=== PATIENT | female | born 1985 | race Caucasian/White ===

== ENCOUNTER → 2024-02-26 15:08 | Outpatient (CLI) | payer BC, SELFPAY ==
--- NOTE | 2024-02-26 15:09 | DI.RAD.S_ITS ---
PROCEDURE: XR THORACIC SPINE 3V INDICATIONS: back pain lower cervical pain TECHNIQUE: 3 views of the thoracic spine were acquired. COMPARISON: None. FINDINGS: Bones: No fractures or dislocations. No suspicious bony lesions. 12 pairs of ribs are noted, and appear intact where visualized. Soft tissues: No paravertebral stripe thickening. IMPRESSION: No acute bony abnormality. Approved by: Riley Etienne M.D. on 02/27/2024 at 19:09
== END ==
PROVIDERS: PCP Family Medicine; Referring Provider Family Medicine; Visit Provider Family Medicine
DX: M54.9 Dorsalgia, unspecified (principal)
CPT/HCPCS: 72072

== ENCOUNTER → 2024-03-12 09:43 | Outpatient (CLI) | payer BC, SELFPAY | PROVIDERS: PCP Family Medicine; Visit Provider Nurse Practitioner Family | DX: J02.9 Acute pharyngitis, unspecified (principal) | CPT/HCPCS: 87070 ==

== ENCOUNTER → 2024-05-13 15:20 | Outpatient (CLI) | payer BC, SELFPAY ==
--- NOTE | 2024-05-13 15:20 | DI.US.S_ITS ---
PROCEDURE: US PELVIC COMPLETE INDICATIONS: Menorrhagia, fam hx early men, pelvic pain TECHNIQUE: Real-time scanning was performed of the pelvic organs, with image documentation. Additional endovaginal scanning was necessary due to incomplete visualization of the adnexal and endometrial structures by transabdominal scanning. COMPARISON: None. FINDINGS: Uterus: Uterus is anteverted and normal in size at 8.4 x 3.8 x 4.6 cm. The myometrium is homogeneous. The endometrium measures 4.3 mm combined thickness. Ovaries: The right ovary measures 3.0 x 1.2 x 2.0 cm, with a calculated ovarian volume of 3.7 cc. Complex right ovarian cyst measuring 1.3 x 0.8 x 1.1 cm. The left ovary measures 2.1 x 2.8 x 1.8 cm, with a calculated ovarian volume of 5.3 cc. Simple left ovarian cyst measuring 1.1 cm. The ovaries have a normal sonographic appearance. Less than 12 follicles can be seen in each ovary. No adnexal masses are seen. Other: No pathologic free abdominal or pelvic fluid. Dilated left adnexal vessels measure up to 9 mm. IMPRESSION: Normal appearance of the uterus and endometrium. Complex right ovarian cyst measuring 1.3 cm. Recommend 6-12 week follow-up ultrasound. Dilated left adnexal vessels measure up to 9 mm, nonspecific, recommend clinical correlation for pelvic congestion syndrome. We strive to produce accurate, complete, and clear reports of imaging services. To assist us in improving patient care, this report was composed using standard report templates and voice recognition software. Therefore, it may contain abnormal punctuation, insertions and/or omissions. Occasional wrong-word or sound-alike substitutions may occur. Though we review the report and make efforts to correct it, we do recommend that the report be read carefully in proper context to recognize any text inaccuracies. Dictated by: Elliot Villagomez M.D. on 05/14/2024 at 15:18 Approved by: Elliot Villagomez M.D. on 05/14/2024 at 15:21
== END ==
LOC: US 15:20
PROVIDERS: PCP Family Medicine; Referring Provider Family Medicine; Visit Provider Family Medicine
DX: N92.0 Excessive and frequent menstruation with regular cycle (principal); N83.292 Other ovarian cyst, left side; N83.291 Other ovarian cyst, right side; R10.2 Pelvic and perineal pain; Z83.49 Family history of other endocrine, nutritional and metabolic diseases
CPT/HCPCS: 76830; 76856; 93976

== ENCOUNTER → 2024-05-16 14:30 | Outpatient (CLI) | payer BC, SELFPAY ==
--- NOTE | 2024-05-16 14:30 | DI.MG.S_ITS ---
BILATERAL DIGITAL SCREENING MAMMOGRAM 3D/2D WITH CAD WITH AUGMENTATION: 05/16/2024 Comparison is made to exam dated: 05/31/2017 mammogram - Outside facility. Both breasts are heterogeneously dense, which may obscure small masses (category c / 51-75% glandular tissue). Current study was also evaluated with a Computer Aided Detection (CAD) system. Bilateral breast implants are present. No significant masses, calcifications, or other findings are seen in either breast. There has been no significant interval change. IMPRESSION: NEGATIVE There is no mammographic evidence of malignancy. A 1 year screening mammogram is recommended. Based on the Tyrer Cuzick model (a risk assessment model) the patient's lifetime risk is 15.0% and her 10 year risk is 1.9%. According to the ACR, ACS, and NCCN guidelines, an annual breast MRI exam along with mammogram is recommended if the patient's lifetime risk is 20% or greater. This exam was interpreted at Station ID: [id number]. NOTE: For mammograms, a report in lay terms will be sent to the patient. Approximately 15% of breast malignancies will not be visualized mammographically. In the management of a palpable breast mass, a negative mammogram must not discourage biopsy of a clinically suspicious lesion. Electronically Signed By: Haroon morales/[email or web address]:05/16/2024 15:05:23 letter sent: Normal Exam ACR BI-RADS Category 1: Negative 3341F
== END ==
PROVIDERS: PCP Family Medicine; Referring Provider Family Medicine; Visit Provider Family Medicine
DX: Z12.31 Encounter for screening mammogram for malignant neoplasm of breast (principal); Z98.82 Breast implant status; R92.333 Mammographic heterogeneous density, bilateral breasts
CPT/HCPCS: 77063; 77067

== ENCOUNTER → 2024-05-20 07:05 | Outpatient (CLI) | payer BC, SELFPAY ==
[2024-05-20 08:02] LABS: Add Manual Diff / Slide Review NO; Basophils Absolute Auto 0 /uL (0-100); Basophils Percent Auto 0.5 % (0-2); Eosinophils Absolute Auto 100 /uL (0-450); Eosinophils Percent Auto 1.7 % (2-4); Hematocrit 38.9 % (36-46); Hemoglobin 13.2 g/dL (12.0-16.0); Lymphocytes Absolute Auto 1300 /uL (1100-4500); Lymphocytes Percent Auto 33.5 % (25-40); Mean Corpuscular HGB Conc 33.9 % (30-36); Mean Corpuscular Hemoglobin 31.8 PG (26-34); Mean Corpuscular Volume 93.8 fL (80-100); Monocytes Absolute Auto 300 /uL (0-900); Monocytes Percent Auto 6.7 % (3-14); Neutrophils Absolute Auto 2300 /uL (1500-7000); Neutrophils Percent Auto 57.6 % (50-75); Platelet Count 246 X10^3/uL (150-400); Red Blood Cell Count 4.15 X10^6/uL (4.0-5.2); Red Cell Distribution Width 12.9 % (11.6-14.8)
[2024-05-20 08:32] LABS: Alanine Aminotransferase 17 IU/L (<35); Albumin 4.4 g/dL (3.5-5.0); Albumin Globulin Ratio 1.5 (1.0-2.8); Alkaline Phosphatase 52 U/L (38-126); Aspartate Aminotransferase 23 IU/L (14-36); BUN Creatinine Ratio 15.3 (6-22); Bilirubin Total 0.6 mg/dL (0.2-1.3); Blood Urea Nitrogen 15 mg/dL (7-17); Calcium 9.4 mg/dL (8.4-10.2); Carbon Dioxide 25 mmol/L (22-32); Chloride 108 mmol/L (98-107); Cholesterol 190 mg/dL (140-199); Estimated Glomerular Filt Rate > 60 mL/min (>60); Globulin 2.9 g/dL (1.7-4.1); Glucose 94 mg/dL (70-100); HDL Cholesterol 69 mg/dL (40-60); HEMOLYSIS < 15 (0-50); LDL Cholesterol Calculated 106 mg/dL (<100); Potassium 5.2 mmol/L (3.4-5.1); Sodium 138 mmol/L (137-145); Total Protein 7.3 g/dL (6.3-8.2); Triglycerides 74 mg/dL (35-150)
== END ==
PROVIDERS: PCP Family Medicine; Referring Provider Family Medicine; Visit Provider Family Medicine
DX: N92.4 Excessive bleeding in the premenopausal period (principal); Z13.220 Encounter for screening for lipoid disorders
CPT/HCPCS: 36415; 80053; 80061; 85025

== ENCOUNTER → 2025-01-20 15:33 | Outpatient (CLI) | payer BC, SELFPAY ==
--- NOTE | 2025-01-20 15:35 | DI.RAD.S_ITS ---
PROCEDURE: XR CHEST 2V INDICATIONS: pain with breathing on right side near upper breast TECHNIQUE: 2 views of the chest were acquired. COMPARISON: None. FINDINGS: Surgical changes and devices: None. Lungs and pleura: Lungs are clear. No pleural effusions or pneumothorax. Mediastinum: Mediastinal contours are normal. Heart size is normal. Bones and chest wall: No suspicious bony abnormalities. Soft tissues appear unremarkable. IMPRESSION: No acute cardiopulmonary abnormality is seen. Dictated by: Neel Gonzales M.D. on 01/21/2025 at 2:25 Approved by: Neel Gonzales M.D. on 01/21/2025 at 2:26
[2025-01-20 17:24] LABS: Add Manual Diff / Slide Review NO; Basophils Absolute Auto 0 /uL (0-100); Basophils Percent Auto 0.4 % (0-2); Eosinophils Absolute Auto 100 /uL (0-450); Eosinophils Percent Auto 0.9 % (2-4); Hematocrit 39.4 % (36-46); Hemoglobin 13.5 g/dL (12.0-16.0); Lymphocytes Absolute Auto 2000 /uL (1100-4500); Lymphocytes Percent Auto 33.7 % (25-40); Mean Corpuscular HGB Conc 34.2 % (30-36); Mean Corpuscular Volume 93.7 fL (80-100); Monocytes Absolute Auto 300 /uL (0-900); Monocytes Percent Auto 5.1 % (3-14); Neutrophils Absolute Auto 3600 /uL (1500-7000); Neutrophils Percent Auto 59.9 % (50-75); Platelet Count 242 X10^3/uL (150-400); Red Cell Distribution Width 12.7 % (11.6-14.8)
[2025-01-20 17:38] LABS: Alanine Aminotransferase 18 IU/L (<35); Albumin 4.7 g/dL (3.5-5.0); Albumin Globulin Ratio 1.3 (1.0-2.8); Alkaline Phosphatase 45 U/L (38-126); Aspartate Aminotransferase 26 IU/L (14-36); BUN Creatinine Ratio 19.1 (6-22); Bilirubin Total 0.5 mg/dL (0.2-1.3); Blood Urea Nitrogen 17 mg/dL (7-17); Calcium 9.2 mg/dL (8.4-10.2); Carbon Dioxide 26 mmol/L (22-32); Chloride 106 mmol/L (98-107); Estimated Glomerular Filt Rate > 60 mL/min (>60); Globulin 3.5 g/dL (1.7-4.1); Glucose 90 mg/dL (70-100); HEMOLYSIS < 15 (0-50); Sodium 140 mmol/L (137-145); Total Protein 8.2 g/dL (6.3-8.2)
== END ==
PROVIDERS: PCP Family Medicine; Referring Provider Physician Assistant; Visit Provider Physician Assistant
DX: N64.4 Mastodynia (principal)
CPT/HCPCS: 36415; 71046; 80053; 85025

== ENCOUNTER → 2025-01-26 12:17 | Outpatient (CLI) | payer BC, SELFPAY ==
--- NOTE | 2025-01-26 12:18 | DI.MRI.S_ITS ---
MR breast BI wo/w con: 01/26/2025. BI-RADS: 2 CLINICAL: 39-year old female for bilateral diagnostic breast MRI. No personal or first-degree family history of breast cancer. The patient has bilateral implants. PRIOR EXAMS: 05/16/2024. MRI TECHNIQUE: Gadavist was injected intravenously: mL. Additional Silicone!!=-Specific sequence(s) added for better evaluation of silicone implant integrity. IV Contrast: 20 ml ProHance. FIBROGLANDULAR TISSUE Bilateral: C. Heterogeneous fibroglandular tissue. BACKGROUND PARENCHYMAL ENHANCEMENT Bilateral: Moderate symmetrical background parenchymal enhancement. BREAST FINDINGS There is no other suspicious mass or non-mass enhancement. No skin or nipple abnormalities. No internal mammary chain or axillary adenopathy. Bilateral There is no suspicious finding with benign findings noted. No MRI abnormalities seen to explain patient's symptoms of right axillary and upper outer quadrant breast pain and swelling. IMPLANT FINDINGS: No abnormal pericapsular fluid collections or enhancement. There are single-lumen silicone implants that appear intact. CHEST FINDINGS Visualized portions of the chest appear unremarkable. ABDOMEN FINDINGS Visualized portions of the upper abdomen appear unremarkable. IMPRESSION: No abnormalities to explain right axillary and right breast upper outer quadrant pain and swelling. * No evidence of malignancy with benign findings. RECOMMENDATIONS * Clinical follow-up is recommended, and further management of palpable abnormalities or other focal signs or symptoms should be based on the results of clinical evaluation. If palpable abnormality or other concerning symptom persists or progresses, further clinical evaluation should be considered. Bilateral * Annual screening mammography. OVERALL ASSESSMENT CATEGORY BI-RADS-2: Benign. ELECTRONICALLY SIGNED: Phoenix Baker M.D. on 01/26/2025 at 11:00:34 PM PT Interpreting Station ID: [id number]
== END ==
PROVIDERS: PCP Family Medicine; Referring Provider Physician Assistant; Visit Provider Physician Assistant
DX: N63.10 Unspecified lump in the right breast, unspecified quadrant (principal); N60.19 Diffuse cystic mastopathy of unspecified breast; R22.2 Localized swelling, mass and lump, trunk; Z98.82 Breast implant status; Z98.890 Other specified postprocedural states; R92.333 Mammographic heterogeneous density, bilateral breasts; Z85.820 Personal history of malignant melanoma of skin
CPT/HCPCS: 77049; A9579

== ENCOUNTER → 2025-04-07 16:33 | Outpatient (CLI) | payer OTHER, SELFPAY ==
[2025-04-09 15:10] LABS: Trichomoas vaginalis Negative (Negative)
== END ==
PROVIDERS: PCP Family Medicine; Visit Provider Obstetrics & Gynecology
DX: N89.8 Other specified noninflammatory disorders of vagina (principal)
CPT/HCPCS: 87480; 87510; 87660

== ENCOUNTER → 2025-04-14 10:26 | Outpatient (CLI) | payer OTHER, SELFPAY ==
[2025-04-14 11:17] LABS: Add Manual Diff / Slide Review NO; Hematocrit 40.0 % (36-46); Hemoglobin 13.8 g/dL (12.0-16.0); Lymphocytes Absolute Auto 1500 /uL (1100-4500); Mean Corpuscular HGB Conc 34.4 % (30-36); Mean Corpuscular Hemoglobin 32.4 PG (26-34); Mean Corpuscular Volume 94.0 fL (80-100); Platelet Count 259 X10^3/uL (150-400)
[2025-04-14 11:41] LABS: Alanine Aminotransferase 20 IU/L (<35); Albumin 4.6 g/dL (3.5-5.0); Albumin Globulin Ratio 1.4 (1.0-2.8); Alkaline Phosphatase 45 U/L (38-126); Blood Urea Nitrogen 14 mg/dL (7-17); Calcium 9.6 mg/dL (8.4-10.2); Carbon Dioxide 24 mmol/L (22-32); Chloride 106 mmol/L (98-107); Estimated Glomerular Filt Rate > 60 mL/min (>60); Globulin 3.3 g/dL (1.7-4.1); Glucose 110 mg/dL (70-99); HEMOLYSIS 18 (0-50); Sodium 138 mmol/L (137-145); Total Protein 7.9 g/dL (6.3-8.2)
[2025-04-14 11:45] LABS: Potassium 5.9 mmol/L (3.4-5.1)
[2025-04-14 11:55] LABS: HEMOLYSIS < 15 (0-50); Iron 123 ug/dL (37-170)
[2025-04-14 12:09] LABS: Percent Iron Saturation 42 % (15-50); Total Iron Binding Capacity 296 ug/dL (265-497); Transferrin 245 mg/dL (206-381)
[2025-04-14 12:16] LABS: Ferritin 15 ng/mL (6-137)
[2025-04-14 12:28] LABS: TSH w/ Reflex to FT4 1.19 uIU/mL (0.47-4.68)
[2025-04-14 12:49] LABS: Vitamin B12 741 pg/mL (239-931)
== END ==
PROVIDERS: PCP Family Medicine; Referring Provider Physician Assistant; Visit Provider Physician Assistant
DX: N92.0 Excessive and frequent menstruation with regular cycle (principal); R53.83 Other fatigue
CPT/HCPCS: 36415; 80053; 82607; 82728; 83540; 83550; 84443; 85025

== ENCOUNTER → 2025-04-18 12:48 | Outpatient (CLI) | payer OTHER, SELFPAY | LOC: LAB 12:48 | PROVIDERS: PCP Family Medicine; Visit Provider Nurse Practitioner Family | DX: R30.0 Dysuria (principal) | CPT/HCPCS: 87086 ==

== ENCOUNTER → 2025-04-21 12:22 | Outpatient (CLI) | payer OTHER, SELFPAY | PROVIDERS: PCP Family Medicine; Visit Provider Chiropractor | DX: N94.89 Other specified conditions associated with female genital organs and menstrual cycle (principal); R30.0 Dysuria | CPT/HCPCS: 87086; 87210 ==

== ENCOUNTER → 2025-04-21 12:31 | Outpatient (CLI) | payer OTHER, SELFPAY ==
[2025-04-21 13:47] LABS: HEMOLYSIS < 15 (0-50); Potassium 5.0 mmol/L (3.4-5.1)
== END ==
PROVIDERS: PCP Family Medicine; Referring Provider Physician Assistant; Visit Provider Physician Assistant
DX: E87.5 Hyperkalemia (principal); N94.89 Other specified conditions associated with female genital organs and menstrual cycle; R30.0 Dysuria
CPT/HCPCS: 36415; 84132; 87086; 87210

== ENCOUNTER → 2025-04-24 11:54 | Outpatient (CLI) | payer OTHER, SELFPAY ==
[2025-04-25 12:11] LABS: Trichomoas vaginalis Negative (Negative)
== END ==
PROVIDERS: PCP Family Medicine; Visit Provider Obstetrics & Gynecology
DX: N89.8 Other specified noninflammatory disorders of vagina (principal)
CPT/HCPCS: 87480; 87510; 87660